=== PATIENT | male | born 2000 | race Caucasian/White ===

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

== ENCOUNTER 2023-07-27 11:38 | Emergency (ER) | payer OTHER ==
[2023-07-27 11:51] VITALS: BP 126/62; O2SAT 99
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
== END 2023-07-27 12:51 | disposition home or self-care (01) ==
LOC: ED 11:38
DX: S09.90XA Unspecified injury of head, initial encounter (principal); W22.8XXA Striking against or struck by other objects, initial encounter
CPT/HCPCS: 99281; 99283